=== PATIENT | male | born 1935 | race Caucasian/White ===

== ENCOUNTER 2018-06-02 10:04 | Inpatient (IN) | payer MEDICARE, BC ==
[2018-06-02 10:19] LABS: #Eosinphils 0.4 thou/uL (0.0-0.7); #Lymphocytes 1.4 thou/uL (1.20-3.40); #Monocytes 0.5 thou/uL (0.11-0.59); #Neutrophils 3.7 thou/uL (1.40-6.50); %Basophils 0.4 % (0.0-1.0); %Monocytes 8.8 % (0.0-10.0); %Neutrophils 61.8 % (42.0-75.0); Hemoglobin 14.1 g/dL (14.0-18.0); Mean Corpuscular HGB CONC 33.4 g/dL (32.0-36.0); Mean Corpuscular Hemoglobin 33.4 pg (27.0-31.0); Mean Corpuscular Volume 99.9 fL (78.0-98.0); Platelet Count 184 thou/uL (130-400); RBC Distribution Width 12.1 % (11.5-14.5); Red Blood Cell (RBC) Count 4.22 mill/uL (4.70-6.10); White Blood Cell (WBC) Count 5.9 thou/uL (4.8-10.8)
[2018-06-02 10:28] LABS: PTT 26.5 SEC (22.9-36.1); Prothrombin Time 13.2 SEC (12.0-14.7)
[2018-06-02 10:34] LABS: ALT (SGPT) 18 U/L (8-55); AST (SGOT) 24 U/L (5-34); Albumin 3.8 g/dL (3.4-4.8); Alkaline Phosphatase 87 U/L (40-150); Anion Gap 13 mmol/L (10-20); BUN (Urea Nitrogen) 18 mg/dL (8.4-25.7); CK (CPK) 146 U/L (30-200); Calc. Creatinine Clearance 0 mL/min (70-130); Calcium 9.3 mg/dL (7.8-10.44); Carbon Dioxide 26 mmol/L (23-31); Chloride 105 mmol/L (98-107); Estimated GFR-MDRD 67; Globulin 2.7 g/dL (2.4-3.5); Glucose 146 mg/dL (83-110); Lipase 42 U/L (8-78); Potassium 4.6 mmol/L (3.5-5.1); Protein, Total 6.5 g/dL (5.8-8.1); Sodium 139 mmol/L (136-145)
--- NOTE | 2018-06-02 10:47 | CT ---
CT OF HEAD NONCONTRAST: Indication: Stroke, left facial droop. FINDINGS: There is a focus of acute hemorrhage within the posterior aspect of the right torres radiata extendin g into the region of the right thalamus and internal capsule. There is interventricular extension of hemorrhage and subarachnoid extension into the interpeduncular and ambient cisterns. There is parench ymal loss. Mild enlargement of ventricular system is noted. IMPRESSION: Acute parenchymal hemorrhage centered about the right posterior torres radiata which may relate to a hypertensive hemorrhage. There is subarachnoid and interventricular extension of hemorrhage. The find ing may relate to a hypertensive etiology. Underlying lesion cannot be excluded. Continued follow up upon resolution of acute hemorrhage recommended with pre and post contrast brain MRI, in the absence of contraindications. Telephone call of findings placed to ER physician, Hank Garcia, at 10:10 a.m. on 06-02-18. Code AVINASH POS: KERI
[2018-06-02] MEDS ORDERED: niCARdipine 20MG In NaCl 20 MG/200 ML BAG ONE (10:54)
--- NOTE | 2018-06-02 11:53 | RAD ---
RADIOGRAPH CHEST 1 VIEW: Date: 06/02/2018 Time: 10:58 a.m. HISTORY: An 83-year-old male with altered mental status. COMPARISON: 06/24/2008 FINDINGS: The previously demonstrated right subclavian central line and right-sided chest tube are no longer pr esent. Otherwise, there has been no other major interval change. Sternotomy wires are again noted. Cardiomegaly. No christa pulmonary edema. No gross consolidation. No pneumothorax. Elevated right hemidiaphragm. IMPRESSION: 1. No acute pulmonary findings. 2. Status post open heart surgery. 3. Cardiomegaly without overt congestive heart failure. DAVIDA [] POS: DINORAH
[2018-06-02] MEDS ORDERED: Bisacodyl 10 MG SUPP PR PRN (12:00)
[2018-06-02] MEDS ORDERED: Ondansetron PF 4 MG/2 ML Vial IVP PRN (12:00)
[2018-06-02] MEDS ORDERED: diphenhydrAMINE 50 MG/ML VIAL IVP PRN (12:00)
--- NOTE | 2018-06-02 12:23 | CT ---
CT ANGIOGRAM NECK: CT ANGIOGRAM HEAD: 06/02/2018 HISTORY: Stroke. Left-sided facial droop. Intracranial hemorrhage on recent head CT. COMPARISON: None. TECHNIQUE: Axial CT imaging at 1.25 mm intervals, from the lung apices through the vertex, with IV contrast, usi ng a CT angiogram protocol. Coronal and sagittal 3D reformatted imaging obtained. FINDINGS: NECK: The imaged lung apices demonstrate no acute findings. Lung parenchyma is slightly limited on the basis of respiratory motion artifact. There is calcified and noncalcified irregular atherosclerotic plaque involving the lateral aspect of the aortic arch, to the left of midline. Midline sternotomy wires are present. The retroantral fat and the parapharyngeal fat appear clear bilaterally. The parotid glands and the submandibular glands appear grossly unremarkable bilaterally. Limited assessment of the aerodigestive tract appears unremarkable. No lymphadenopathy is seen in th e neck. The origin of the innominate artery, the left common carotid artery, and the left subclavian artery i s patent. There is plaque at the origin of the innominate artery, common carotid artery, and left gutierrez bclavian artery. The origin of the right subclavian artery and the right common carotid artery appears unremarkable. There is atherosclerotic calcification at the origin of the right vertebral artery, with probable mi ld associated stenosis. There is calcified plaque at the origin of the left vertebral artery with pr obable moderate stenosis. Bilateral vertebral arteries are patent. The right common carotid artery is tortuous proximally. There is prominent calcified plaque within the distal right common carotid artery, extending into the proximal right internal carotid artery, wi th mild associated stenosis. There is mild calcified plaque at the origin of the left internal carot id artery with no hemodynamically significant stenosis on the basis of NASCET criteria. HEAD: CT angiogram of the head demonstrates patency of the basilar artery. At the origin of the right superior cerebellar artery, there is an irregularly-shaped, slightly lobul ated, posteriorly-directed, 4 mm saccular aneurysm. The bilateral superior cerebellar arteries appea r patent. The P1 segment is patent and bilateral posterior cerebral arteries are patent. There is a patent posterior communicating artery on the right. There is atherosclerotic calcification of the cavernous carotid arteries bilaterally. The A1 segment is patent bilaterally, and the distal PIERRE branches appear unremarkable. The ICA bifurcation appears unremarkable bilaterally. The M1 segment is patent bilaterally, and the MCA bifurcation appears unremarkable bilaterally. The distal MCA branches appear grossly unremarkable. There is intraaxial hemorrhage in the region of the thalamus laterally, on the right, extending super iorly into the periventricular white matter, adjacent to the atrium of the right lateral ventricle, a s seen on the recent head CT. There is intraventricular blood within the right lateral ventricle, es pecially the atrium, posterior horn, and temporal horn. There is intraaxial hemorrhage within the an terior and posterior aspect of the mid brain bilaterally, and subarachnoid hemorrhage is noted in the suprasellar cistern/prepontine cistern. No acute osseous abnormality is noted. There is extensive multilevel degenerative change noted withi n the cervical spine, with multilevel disk space narrowing, degenerative endplate change, and anterio r osteophyte formation at C4-C5,C5-C6, and C6-C7, with associated bilateral facet and uncovertebral o steophyte formation. There is an area of vascular enhancement in the posterior fossa on the right, p osterior and lateral to the joanie, which could be venous in nature. This could be better evaluated on the four-vessel angiogram. IMPRESSION: 1. 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 There is adjacent subar achnoid blood, as well as intraventricular and intraparenchymal blood, including witihin the brainste m. 2. No hemodynamically significant stenosis involving the arterial structures of the neck. Results called to Dr. Garcia at 11:15 a.m. on 06/02/2018. CODE CR POS: DINORAH
[2018-06-02] MEDS ORDERED: Iopamidol 370 76% 100 ML VIAL ONE (12:40)
[2018-06-02] MEDS: niMODipine 30 MG CAP PO SCH ×3 (13:00→22:32)
--- NOTE | 2018-06-02 14:54 | PRG ---
DATE OF SERVICE: 06/02/2018 Mr. Iyer is an 83-year-old male who had the abrupt altered level of consciousness at home. He was brought to the ER where he had a noncontrast head CT performed which shows presence of subarachnoid hemorrhage, but also intraparenchymal involvement of the brainstem. He also has blood in the right thalamus and internal capsule on the right side. There is also intraventricular extension of hemorrhage as well. There is no evidence of ventriculomegaly or hydrocephalus. 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 The patient was admitted to the ICU. I have evaluated the patient and I have also had a lengthy conversation with his immediate family members. Mr. Iyer is currently nonresponsive to voice. He has spontaneous movements on the right side but none on the left. He presented to the hospital with a left facial droop. He is currently not intubated. He does have sonorous sounds while sleeping. He has a fixed pupil on the right, consistent with his brainstem injury. There are no signs of herniation on imaging or currently clinically. My discussion with the family included his current imaging, his diagnosis, as well as what I believe to be his prognosis which is very poor. I did discuss with them immediate concerns we have with aneurysmal subarachnoid hemorrhage. Namely, securing the aneurysm, maintaining adequate blood pressure control and vigilance with respect to development of hydrocephalus and vasospasm. I also indicated to them that based on the location of his hemorrhage that he would likely be permanently and profoundly impacted with respect to his level of independence. I believe the hemorrhage's location is such that he would have dysphagia, dysarthria and dense hemiparesis or hemiplegia. I do not believe he is a good candidate for open craniotomy. We could conceivably perform endovascular coiling of the aneurysm, but the family needs to have additional discussions first with respect to level of care, namely whether he will be DNI or DNR or some combination of the two. For now, we will continue with rigid blood pressure control. We will repeat the CT exam and place a ventriculostomy if need be and if the family wishes us to. Job ID: [id number] [facility]
[2018-06-02] MEDS: niCARdipine HCl 25 MG in Sodium Chloride 0.9% 250 ML 240 ML IVPB SCH (17:45)
[2018-06-02] MEDS: Sodium Chloride 0.9% 1,000 ML IV SCH ×2 (17:46→23:16)
--- NOTE | 2018-06-02 19:32 | CON ---
DATE OF CONSULTATION: 06/02/2018 This is a 70 minutes of the time, of that time, greater than 50% was spent with the patient and/or with the patient's family in the ICU. REASON FOR CONSULTATION: Impending respiratory failure secondary to brainstem stroke. HISTORY OF PRESENT ILLNESS: The patient is an 83-year-old male, who presented to the emergency room today with facial droop, difficulty ambulating, and weakness. He has developed progressive unresponsiveness throughout the day. He has had an aneurysmal bleed in the region of the brainstem. I spoke to Dr. Klein on the phone. He did not think that this was a survival situation. PAST MEDICAL HISTORY: 1. Hypertension. 2. Diabetes mellitus. PAST SURGICAL HISTORY: 1. Coronary artery bypass grafting surgery. 2. Prostate surgery. PSYCHIATRIC HISTORY: Unremarkable. SOCIAL HISTORY: Nonsmoker. Does not consume alcohol. Does not use illicit drugs. ALLERGIES: NONE. MEDICATIONS: Prior to admission; 1. Aspirin 81 mg daily. 2. Lipitor 20 mg 2 daily. 3. Metformin 500 mg 2 tablets b.i.d. 4. Omeprazole 20 mg once daily. 5. Januvia 1000 mg daily. 6. Hyzaar 500/12.5 one daily. 7. Levemir insulin 90 units subcutaneously at bedtime. REVIEW OF SYSTEMS: Cannot be obtained because the patient is currently obtunded. PHYSICAL EXAMINATION: VITAL SIGNS: Heart rate 76, blood pressure 125/57, respiratory rate 18, and O2 saturation 97%. GENERAL: This is an elderly male, who is obtunded. He will not respond to commands. HEENT: His right pupil is 5 mm, unreactive. Left pupil is 3 mm, unreactive. He has no oculocephalic reflex. He has a very weak gag reflex. He does withdraw to pain when stimulated all 4 extremities. He has Kussmaul respirations. NECK: No adenopathy, JVD, or bruits. LUNGS: Coarse breath sounds. CARDIAC: S1 and S2. Regular without murmur. ABDOMEN: Soft. No hepatosplenomegaly. EXTREMITIES: No clubbing, cyanosis, or edema. LABORATORY DATA: White blood cell count 5.9, hematocrit 42.2, and platelet count 184. INR 1.0 and PTT 26.5. Sodium 139, potassium 4.6, chloride 105, CO2 of 26, BUN 18, creatinine 1.1, and glucose 146. BNP 141. DIAGNOSTIC DATA: Head CT was reviewed, shows blood in the region of third and fourth ventricle. ASSESSMENT: 1. Brainstem aneurysmal bleed. 2. Obtunded neurologic status. PLAN: I told the family that the situation is likely to progress in a situation to where the patient probably have loss of respirations sometime in the next 24 to 48 hours. That would require intubation in heroic circumstances, but it sounds like the patient did not want life-sustaining treatment in the event of terminal illness. Through my conversations with Dr. Klein, it sounds like this is a terminal situation. I would recommend that make the patient DNR. The family is discussing this amongst themselves. I reviewed the orders. Agree with current care including nicardipine for hypertension and SCDs for DVT prophylaxis and famotidine for GI prophylaxis. Job ID: [id number]
--- NOTE | 2018-06-02 19:48 | CT ---
CT BRAIN: 06/02/2018 PROVIDED CLINICAL HISTORY: Follow up intracranial hemorrhage. COMPARISON: Exam performed earlier, same date. FINDINGS: Parenchymal hemorrhage in the right cerebral white matter with intraventricular extension is redemons trated. The size of the parenchymal hematoma appears similar to slightly enlarged with respect to th e prior study. There is more intraventricular blood than was present on the prior examination. Exte nsion into the right cerebral peduncle and mid brain/joanie is suspected on the current study. The france tricular system is stable in size. There is no evidence for midline shift. Scattered left and right cerebral subarachnoid blood is also seen. This appears somewhat increased with respect to the prior examination. The extracranial soft tissues and osseous structures demonstrate no significant interval change with respect to the prior examination. IMPRESSION: Redemonstration of parenchymal hemorrhage with interval increase in the degree of parenchymal, intrav entricular, and subarachnoid blood. POS: DINORAH
[2018-06-02] MEDS ORDERED: Propofol 1,000 MG/100 ML VIAL IV ONE (22:19)
[2018-06-02 23:05] LABS: Base Excess (BEa) -3.3 mEq/L (-2.0 to +3.0); CO2 Tension 30.9 mmHg (35.0-45.0); Calcium, Ionized 1.15 mmol/L (1.12-1.30); Carboxyhemoglobin (COHb) 1.3 gm% (0.0-3.0); Hemoglobin (Hb) 13.5 g/dL (14.0-18.0); O2 Tension (PaO2) 89.2 mmHg (> 60.0); Potassium - ABG Lab 3.86 mmol/L (3.70-5.30); pH, Arterial 7.43 (7.35-7.45)
[2018-06-02] MEDS: Famotidine/PF 20 mg/2ml Vial SLOW IVP SCH (23:14)
[2018-06-02 23:26] LABS: Puncture Site LRA
[2018-06-02 23:27] LABS: ALV-art Gradient 157.375 (0-20)
[2018-06-02] MEDS ORDERED: Propofol 1,000 MG/100 ML VIAL IV PRN (23:45)
[2018-06-02] MEDS ORDERED: Lorazepam 2 MG/ML VIAL SLOW IVP PRN (23:45)
[2018-06-02] MEDS ORDERED: DISCONTINUE PREVIOUS NARCOTIC PAIN MEDICATIONS AND BENZODIAZEPINES FS SCH (23:45)
[2018-06-02] MEDS ORDERED: Fentanyl BOLUS 250 ML IVPB PRN (23:45)
[2018-06-02] MEDS ORDERED: Morphine 2 MG/ML SYRINGE SLOW IVP PRN (23:45)
[2018-06-02] MEDS ORDERED: fentaNYL Citrate/PF 2,000 MCG in Sodium Chloride 0.9% 60 ML IV SCH (23:45)
[2018-06-02] MEDS ORDERED: Propofol BOLUS 1,000 MG/100 ML VIAL IV PRN (23:45)
--- NOTE | 2018-06-03 00:08 | PRG ---
DATE OF SERVICE: 06/02/2018 This is 2 hours of critical care time. I was called to see the patient because he is having difficulty maintaining his airway secondary to progressive stroke symptoms. I tried over the phone to talk to family out of intubation, because the patient apparently expressed to the at a much earlier date that he did not want to be kept alive or put on life support in such circumstances. That discussion did not go well. The family seemed a little bit divided over this and truthfully i may have pressed them a little too hard on the issue. Decision was made to go ahead and intubate him as the family needed some time to better grasp the situation and probably to grief. I came in and attempted to intubate the patient with a 7.5 endotracheal tube. I first tried orally via a GlideScope and had difficulty, and then tried with bronchoscopy and also had a great deal of difficulty. I went back to the GlideScope and was able to get a 7.5 endotracheal tube through. However, the tube had a leak and had to be exchanged with another 7.5 endotracheal tube. He did not desaturate during any part of that procedure. He was placed on mechanical ventilation and had an appropriate blood gas afterwards. Afterwards, I sat down with the patient's , her granddaughter, and her son. I was apologetic about earlier conversations. The family was very gracious to me. I think they do have a good understanding that the prognosis in this situation is bad. They asked me what the next steps were. I told them that this situation could evolve in the brain or could remain static. In any event, I would not expect much in the way of neurologic recovery. I told them that provided he did not progress to brain , then they would have to come to me and tell me when they felt withdraw care was appropriate. The patient's did request to make him DNR from this point forward, so an order in that regard will be put in the chart. Job ID: [id number] MTDD
[2018-06-03] MEDS: niMODipine 30 MG CAP PO SCH ×6 (01:05→21:23)
[2018-06-03] MEDS: Acetaminophen 650 MG/20.3 ML UDCUP PER TUBE PRN ×2 (01:06→16:05)
[2018-06-03] MEDS: Sodium Chloride 0.9% 1,000 ML IV SCH ×2 (05:21→17:17)
[2018-06-03 05:36] LABS: Anion Gap 12 mmol/L (10-20); BUN (Urea Nitrogen) 18 mg/dL (8.4-25.7); Calc. Creatinine Clearance 66 mL/min (70-130); Calcium 8.4 mg/dL (7.8-10.44); Carbon Dioxide 23 mmol/L (23-31); Chloride 108 mmol/L (98-107); Estimated GFR-MDRD 75; Glucose 167 mg/dL (83-110); Potassium 3.8 mmol/L (3.5-5.1); Sodium 139 mmol/L (136-145)
[2018-06-03 06:14] LABS: #Lymphocytes 1.2 thou/uL (1.20-3.40); #Neutrophils 6.4 thou/uL (1.40-6.50); %Basophils 0.2 % (0.0-1.0); %Eosinophils 0.3 % (0.0-10.0); %Lymphocytes 14.2 % (21.0-51.0); %Monocytes 11.1 % (0.0-10.0); %Neutrophils 74.2 % (42.0-75.0); Hemoglobin 12.3 g/dL (14.0-18.0); Mean Corpuscular HGB CONC 33.7 g/dL (32.0-36.0); Mean Corpuscular Volume 97.8 fL (78.0-98.0); Mean Platelet Volume 7.3 fL (7.4-10.4); Platelet Count 184 thou/uL (130-400); RBC Distribution Width 12.2 % (11.5-14.5); Red Blood Cell (RBC) Count 3.73 mill/uL (4.70-6.10); White Blood Cell (WBC) Count 8.7 thou/uL (4.8-10.8)
[2018-06-03 07:51] LABS: Actual Bicarbonate (HCO3a) 20.5 mEq/L (22-28); Base Excess (BEa) 0.2 mEq/L (-2.0 to +3.0); Calcium, Ionized 1.15 mmol/L (1.12-1.30); Carboxyhemoglobin (COHb) 1.1 gm% (0.0-3.0); Hemoglobin (Hb) 13.1 g/dL (14.0-18.0); Potassium - ABG Lab 3.78 mmol/L (3.70-5.30)
[2018-06-03 07:53] LABS: CO2 Tension 22.7 mmHg (35.0-45.0); pH, Arterial 7.57 (7.35-7.45)
[2018-06-03 07:54] LABS: ALV-art Gradient 76.825 (0-20); Puncture Site LRA
--- NOTE | 2018-06-03 09:32 | PRG ---
DATE OF SERVICE: 06/03/2018 This is 35 minutes critical care time. SUBJECTIVE: The patient remains intubated on mechanical ventilation. He has not had any sedation the night. OBJECTIVE: VITAL SIGNS: His maximum temperature was 102, currently 99.5, pulse 66, blood pressure 138/62. A 24-hour intake 2284, output 1270. NEUROLOGICAL: His right pupil is 4 mm, unreactive. Left pupil 1 mm, unreactive. He does have a gag. He does have spontaneous respirations. He will withdraw to stimulation in all four extremities, but does not follow any commands. HEENT: Otherwise unremarkable. NECK: No JVD. CHEST: Clear. CARDIAC: S1, S2. Regular. ABDOMEN: Soft. EXTREMITIES: No edema. LABORATORY DATA: Sodium 139, potassium 3.8, chloride 108, CO2 of 23, BUN 18, creatinine 0.9, glucose 167. PH 7.57, pCO2 of 23, PO2 180 on SIMV, rate 14, tidal volume of 500, PEEP 5, FiO2 40%. White blood cell count 8.7, hematocrit 36.5, and platelet count 184. ASSESSMENT: 1. The patient has had a brainstem aneurysmal bleed. He has significant neurologic deficit without evidence of improvement in the last 24 hours. I cannot say that he has had any decline though. 2. He remains on mechanical ventilation for airway protection at the family request. 3. We will adjust the patient's mechanical ventilation settings for the respiratory alkalosis. 4. Continue supportive care with IV fluids. 5. Further recommendations per Neurosurgery. Job ID: [id number]
[2018-06-03] MEDS: Famotidine/PF 20 mg/2ml Vial SLOW IVP SCH ×2 (09:44→21:23)
--- NOTE | 2018-06-03 10:00 | PRG ---
DATE OF SERVICE: 06/03/2018 Mr. Iyer remains in the ICU, now intubated at family's request last evening. His neurologic exam is for the most part unchanged. Repeat CT examination performed yesterday which shows no significant change in degree of ventriculomegaly or blood present. The family is awaiting additional family members to arrive from out of town before they make additional decisions with respect to his plan of care. I have reiterated to the family and they appear to understand quite well the very grave prognosis for Mr. Iyer and that he is unlikely to recover. Job ID: [id number]
[2018-06-03 13:36] VITALS: BMI 26.5
--- NOTE | 2018-06-03 20:04 | CON ---
DATE OF CONSULTATION: PRIMARY CARE PHYSICIAN: Dr. Randolph. PRIMARY TEAM NEUROSURGERY: Dr. Klein. REASON FOR CONSULTATION: Medical management. HISTORY OF PRESENT ILLNESS: This is an 83-year-old white male, who was in previously good health, who developed a facial droop, difficulty ambulating, weakness, and decreased responsiveness throughout the day. He was brought to the emergency room, diagnosed with an aneurysmal bleed into the brain stem. The patient was admitted to the hospital by Dr. Klein. He determined that he had very poor prognosis that possibly some sort of coiling could be done for the aneurysm itself and ventriculostomy if needed should he start to develop hydrocephalus; however , he does not have that at this point. The patient was admitted yesterday and late last night, he had increasing difficulty breathing secondary due to his decreased mental status and Dr. Gurrola had a long discussion with the family and eventually, it was determined to intubate him after that, however, they made him do not attempt resuscitation. This morning, he remained stable on the vent and has unchanged neurologic exam. PAST MEDICAL HISTORY: All history taken from the chart and from his son, who is at bedside as the patient is unresponsive currently. 1. Hypertension. 2. Diabetes mellitus, type 2. PAST SURGICAL HISTORY: 1. Coronary artery bypass grafting. 2. Prostate surgery. SOCIAL HISTORY: No tobacco, alcohol, or illicit drug use. The patient lives with his . They were very active together until about 2 years ago when she had an aortic rupture when she survived, resulted in some amputations of her feet. 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 FAMILY HISTORY: Unknown due to the patient's current medical status. ALLERGIES: NO KNOWN DRUG ALLERGIES. CURRENT MEDICATIONS: 1. Aspirin 81 mg daily. 2. Lipitor 20 mg two tablets daily. 3. Metformin 500 mg two tablets twice a day. 4. Omeprazole 20 mg daily. 5. Januvia 100 mg daily. 6. Hyzaar 50/12.5 mg one tablet daily. 7. Levemir 9 units subcutaneous at bedtime. REVIEW OF SYSTEMS: Unable to obtain secondary to the patient's obtunded status. PHYSICAL EXAMINATION: VITAL SIGNS: Blood pressure 139/65, pulse is 57, respirations 20 on the vent, O2 saturation 98%, and temperature 99.5. GENERAL: This is a well-developed, well-nourished white male, who is sedated on the vent, not responding to commands or stimulation. HEENT: The patient's right pupil was 5 mm and nonreactive. Left pupil was 3 mm and nonreactive. No oculocephalic reflex. Weak gag reflex. I was not able to appreciate any withdrawal to pain. He is wrestling around very small movements of his right upper extremity and right lower extremity. ENT, the patient is intubated with an OG tube in place as well. No injuries visible. NECK: No bruising. No trauma. No masses or thyromegaly. HEART: Regular rate and rhythm. No murmurs. LUNGS: Clear to auscultation on the vent. No wheezes or crackles. ABDOMEN: Soft. No organomegaly noted. Positive bowel sounds. EXTREMITIES: No clubbing, cyanosis, or edema. NEUROLOGIC: The patient has reflexes in all extremities. He does not have the oculocephalic reflex on eye exam above. He is moving his right arm and right leg minimally, but not to command or withdrawing to pain at this time and has no movement of his left side. SKIN: No rashes or lesions noted. LABORATORY DATA: CBC grossly normal. Coagulation profile normal. Complete metabolic panel without significant abnormalities. Blood sugars are running in the 130s to 160s. His initial troponin was negative. Brain natriuretic peptide 140. CT of brain, repeat image done yesterday evening shows re-demonstration of parenchymal hemorrhage with interval increase in degree of the parenchymal, intraventricular, and subarachnoid blood. CT of [place] of [place] angio with contrast from yesterday does show a posteriorly directed irregular 4 mm ruptured saccular aneurysm within the posterior fossa to the right of the midline at the origin of the right superior cerebellar artery with adjacent subarachnoid blood. ASSESSMENT: 1. 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 2. Acute respiratory failure secondary to above, on the ventilator. 3. Hypertension, currently well-controlled. 4. Diabetes mellitus type 2 without significant elevations of blood sugars. 5. Code status. The patient is currently do not attempt resuscitation. The family is waiting for everyone to get into town before they make any further decisions at this time. Palliative Care has been consulted. Job ID: [id number] [facility]
[2018-06-04] MEDS: niMODipine 30 MG CAP PO SCH ×6 (00:28→21:31)
[2018-06-04] MEDS: Sodium Chloride 0.9% 1,000 ML IV SCH ×3 (00:28→21:31)
[2018-06-04] MEDS: niCARdipine HCl 25 MG in Sodium Chloride 0.9% 250 ML 240 ML IVPB SCH (01:46)
[2018-06-04 05:28] LABS: #Eosinphils 0.1 thou/uL (0.0-0.7); #Lymphocytes 0.9 thou/uL (1.20-3.40); #Monocytes 1.1 thou/uL (0.11-0.59); #Neutrophils 7.3 thou/uL (1.40-6.50); %Basophils 0.3 % (0.0-1.0); %Eosinophils 0.6 % (0.0-10.0); %Lymphocytes 9.6 % (21.0-51.0); %Monocytes 11.7 % (0.0-10.0); %Neutrophils 77.8 % (42.0-75.0); Hemoglobin 13.6 g/dL (14.0-18.0); Mean Corpuscular HGB CONC 33.7 g/dL (32.0-36.0); Mean Corpuscular Hemoglobin 33.7 pg (27.0-31.0); Mean Platelet Volume 7.4 fL (7.4-10.4); Platelet Count 158 thou/uL (130-400); RBC Distribution Width 12.4 % (11.5-14.5); Red Blood Cell (RBC) Count 4.04 mill/uL (4.70-6.10); White Blood Cell (WBC) Count 9.4 thou/uL (4.8-10.8)
[2018-06-04 05:42] LABS: Anion Gap 11 mmol/L (10-20); BUN (Urea Nitrogen) 16 mg/dL (8.4-25.7); Calc. Creatinine Clearance 74 mL/min (70-130); Calcium 8.7 mg/dL (7.8-10.44); Carbon Dioxide 22 mmol/L (23-31); Chloride 110 mmol/L (98-107); Estimated GFR-MDRD 86; Glucose 168 mg/dL (83-110); Potassium 3.9 mmol/L (3.5-5.1); Sodium 139 mmol/L (136-145)
[2018-06-04] MEDS: Famotidine/PF 20 mg/2ml Vial SLOW IVP SCH ×2 (09:06→21:32)
--- NOTE | 2018-06-04 09:09 | RAD ---
CHEST 1 VIEW: INDICATION: Intubation. COMPARISON: Prior study dated 06/02/2018. FINDINGS: The patient has been intervally intubated. The ET tube tip was seen 3.3 cm above the level of the ca david. Gastric catheter projects beyond the left hemidiaphragm and beyond the field of view. There i s a new left-sided pleural effusion with left basilar atelectasis. Sternotomy changes are similar-ap pearing. No definite pneumothorax is evident. The osseous structures are unchanged. IMPRESSION: 1. New left-sided pleural effusion and left basilar opacity may reflect atelectasis, pneumonia, or a spiration. Continued followup is recommended. 2. Interval intubation with gastric catheter placement. 3. Midline sternotomy changes are similar. POS: [facility]
--- NOTE | 2018-06-04 09:50 | PRG ---
DATE OF SERVICE: 06/04/2018 PULMONARY CRITICAL CARE PROGRESS NOTE 35 minutes critical time. SUBJECTIVE: The patient remains intubated on mechanical ventilation. There has been no acute changes that I can see overnight. OBJECTIVE: VITAL SIGNS: His temperature is 99.3, pulse 69, blood pressure 139/61, O2 saturation 98%. Total intake 24-hour 2529, output 925. NEUROLOGIC: His right pupil continues to be larger than his left pupil. He does have a gag. He does have spontaneous respirations. He will withdraw with his right arm, right leg, and left leg. I could not get any withdrawal with the left arm. He will not wake up or follow commands. HEENT: Otherwise unremarkable. NECK: No JVD. CHEST: Clear anteriorly. CARDIAC: S1 and S2. Regular. ABDOMEN: Soft. EXTREMITIES: No edema. DIAGNOSTIC DATA: His chest x-ray shows a small left pleural effusion. The endotracheal tube is in appropriate place. LABORATORY DATA: Sodium 139, potassium 3.9, chloride 110, CO2 of 22, BUN 16, creatinine 0.8, and glucose 168. White blood cell count 9.4, hematocrit 40, platelet count 158. Blood gas is pending. ASSESSMENT: 1. Acute respiratory failure requiring mechanical ventilation. 2. Brainstem aneurysmal bleed with unchanged neurologic status. PLAN: Awaiting on family decision regarding further aggressive care. I am continuing mechanical ventilation until they give me some sense of direction. Of note, this patient is not requiring any sedation at this time. Nutritionally, we can start tube feeds if the family wants to continue present care. Job ID: [id number]
--- NOTE | 2018-06-04 09:51 | PDOC.PN ---
- Subjective Encounter Start Date: 06/04/18 Encounter Start Time: 10:45 -: non-verbal Subjective: Patient without changes overnight. Family considering withdrawing vent, -: most likely tomorrow morning. - Objective Resuscitation Status - Order Detail: 06/02/18 23:05 Resuscitation Status Routine Resuscitation Status: DNAR: NO Resuscitation Discussed with: Dr. Gurrola discussed w pts and son MERCEDES Reviewed: Yes Vital Signs & Weight: Vital Signs (12 hours) Temp Pulse Resp BP 06/04/18 08:00 100.2 F H 17 06/04/18 06:26 72 140/63 06/04/18 06:00 13 06/04/18 04:00 99.2 F 16 06/04/18 02:30 63 137/56 L 06/04/18 02:00 15 06/04/18 00:00 99.1 F 16 06/03/18 22:35 55 L 144/60 H 06/03/18 22:00 15 Weight Admit Weight 176 lb 2.389 oz Weight 178 lb 2.136 oz Most Recent Monitor Data Heart Rate from ECG 65 NIBP 123/49 NIBP BP-Mean 73 Respiration from ECG 25 SpO2 97 I&O: 06/03/18 06/04/18 06/05/18 06:59 06:59 06:59 Intake Total 2284.7 2529 Output Total 1270 925 125 Balance 1014.7 1604 -125 Result Diagrams: 06/04/18 04:48 06/04/18 04:48 Additional Labs: Accuchecks 06/04/18 06/03/18 06/03/18 00:14 17:20 11:52 POC Glucose 147 H 148 H 163 H Phys Exam - Physical Examination HEENT: moist MMs R pupil 4mm, L pupil 2mm, neither are reactive to light. 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 * . - Discharge Day Encounter end time: 11:00
[2018-06-04] MEDS: Acetaminophen 650 MG/20.3 ML UDCUP PER TUBE PRN (12:45)
--- NOTE | 2018-06-04 22:12 | PRG ---
DATE OF SERVICE: 06/04/2018 Mr. Iyer remains in the ICU in critical condition, status post aneurysmal subarachnoid hemorrhage with extension into the brainstem as well as the medial and inferior temporal aspect on the right. His neurologic exam continues to decline slowly. He does over-breathe the vent. He does not make any purposeful movements nor does he upon the time of my exam respond to stimulation. The family, as of today, continues to await additional family members to arrive in town. I am under the impression that they are moving towards the plan of care, which will involve withdrawal of care. I will meet with them again tomorrow for an update. Job ID: [id number]
[2018-06-05] MEDS: niMODipine 30 MG CAP PO SCH ×5 (00:48→17:26)
[2018-06-05 05:09] LABS: #Lymphocytes 0.6 thou/uL (1.20-3.40); #Monocytes 1.2 thou/uL (0.11-0.59); #Neutrophils 6.5 thou/uL (1.40-6.50); %Basophils 0.2 % (0.0-1.0); %Eosinophils 0.1 % (0.0-10.0); %Lymphocytes 7.2 % (21.0-51.0); %Monocytes 13.8 % (0.0-10.0); %Neutrophils 78.7 % (42.0-75.0); Hemoglobin 13.5 g/dL (14.0-18.0); Mean Corpuscular HGB CONC 35.4 g/dL (32.0-36.0); Mean Corpuscular Hemoglobin 34.8 pg (27.0-31.0); Mean Corpuscular Volume 98.4 fL (78.0-98.0); Mean Platelet Volume 7.6 fL (7.4-10.4); Platelet Count 151 thou/uL (130-400); RBC Distribution Width 12.1 % (11.5-14.5); Red Blood Cell (RBC) Count 3.88 mill/uL (4.70-6.10); White Blood Cell (WBC) Count 8.3 thou/uL (4.8-10.8)
[2018-06-05] MEDS: Sodium Chloride 0.9% 1,000 ML IV SCH (05:32)
[2018-06-05 05:35] LABS: Anion Gap 13 mmol/L (10-20); BUN (Urea Nitrogen) 21 mg/dL (8.4-25.7); Calc. Creatinine Clearance 72 mL/min (70-130); Calcium 8.6 mg/dL (7.8-10.44); Carbon Dioxide 18 mmol/L (23-31); Chloride 111 mmol/L (98-107); Estimated GFR-MDRD 84; Glucose 219 mg/dL (83-110); Potassium 3.8 mmol/L (3.5-5.1); Sodium 138 mmol/L (136-145)
[2018-06-05] MEDS ORDERED: Lorazepam 2 MG/ML VIAL SLOW IVP PRN (08:23)
[2018-06-05] MEDS: Famotidine/PF 20 mg/2ml Vial SLOW IVP SCH (09:24)
--- NOTE | 2018-06-05 10:09 | PRG ---
DATE OF SERVICE: 06/05/2018 Thirty five minutes critical time. SUBJECTIVE: The patient remains intubated on mechanical ventilation. There have been no acute changes overnight. OBJECTIVE: VITAL SIGNS: Temperature is 100.8, pulse 72, blood pressure 126/54. A 24-hour intake 2864, output 998. NEUROLOGIC: His right pupil is 4 mm, left pupil 3 mm, both nonreactive. No oculocephalic reflex. He does have a weak gag. He does have spontaneous respirations. He will withdraw in all 4 extremities. He does not follow any commands. HEENT: Otherwise unremarkable. NECK: No JVD. CHEST: Clear. CARDIAC: S1 and S2, regular. ABDOMEN: Soft. EXTREMITIES: No edema. LABORATORY DATA: Sodium 138, potassium 3.8, chloride 111, CO2 of 18, BUN 21, creatinine 0.8, glucose 219. White blood cell count 8.3, hematocrit 38.2, and platelet count 151. ASSESSMENT: 1. Brainstem aneurysmal bleed. 2. Locked in neurologic state without any evidence of improvement. 3. Acute respiratory failure, requiring mechanical ventilation - mainly airway protection issue. PLAN: It is anticipated the family will withdraw care later today. I have written orders on the chart for morphine and Ativan should they do such. I do not see any real reason to address the fever if the family is intent on extubating. Job ID: [id number]
--- NOTE | 2018-06-05 11:13 | PRG ---
DATE OF SERVICE: 06/05/2018 Mr. Iyer remains in the ICU intubated and gravely ill. He sustained an aneurysmal subarachnoid hemorrhage with an extension into the brainstem. We have not anticipated that he will have a survivable injury and certainly with little to no chance to return to function. The family is planning to extubate later this afternoon and move towards comfort care only. Job ID: [id number]
[2018-06-05 11:57] VITALS: BP 131/54
[2018-06-05] MEDS: Morphine 4 MG/ML VIAL SLOW IVP PRN ×6 (17:28→23:44)
[2018-06-05] MEDS ORDERED: Scopolamine 1.5 mg/72 hour Patch TD SCH (19:23)
[2018-06-05 19:36] VITALS: TEMP 100.9
--- NOTE | 2018-06-05 20:48 | PRG ---
DATE OF SERVICE: 06/05/2018 TIME OF SERVICE: 6:30 p.m. INTERVAL HISTORY: Mr. Iyer's family proceeded with terminal extubation around 5:00 p.m. today. He has continued to breathe spontaneously following extubation , and remains hemodynamically stable at this time. He does have significant transmitted upper airway sounds. I saw and examined the patient, met with the patient's family as well to help explain the current process. They are at peace with decisions made and care that he is receiving. The patient himself is nonresponsive. OBJECTIVE: VITAL SIGNS: Blood pressure 121/51 with a heart rate of 74, he is presently saturating 94% on room air. GENERAL: This is a nonresponsive gentleman, breathing about 20 times per minute on my count, with significant upper airway transmitted sounds present. Eyes: pupils reactive O/P: MM dry LUNGS: Lung walters in the lower sections are fairly clear, with coarse transmitted upper airway noise overlying. HEART: Regular rate and rhythm. ABDOMEN: Soft, nontender. EXTREMITIES: Have trace edema present bilaterally. NEUROLOGIC: He is nonresponsive to stimuli. LABORATORY DATA: Labs and hospital course reviewed. IMPRESSION: 1. 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 2. Acute respiratory failure with hypoxemia. 3. History of type 2 diabetes. 4. History of essential hypertension. PLAN/RECOMMENDATIONS: Added scopolamine per family request. Discontinued nonessential orders, providing orders only for comfort, to include judicious use of morphine as well as Ativan, though ativan seems unlikely to be necessary given his current condition, does not appear agitated. I have entered transfer orders for a medical bed, hopefully with a larger room able to accommodate his large and supportive family. I spoke with the family as well, should his condition require more prolonged care, consideration can be made for transition to inpatient hospice. They expressed agreement and understanding with the plan as above. Job ID: [id number] [facility]
[2018-06-05] MEDS: Lorazepam 2 MG/ML VIAL SLOW IVP PRN (22:47)
[2018-06-06] MEDS: Morphine 4 MG/ML VIAL SLOW IVP PRN ×5 (00:44→09:13)
[2018-06-06] MEDS: Lorazepam 2 MG/ML VIAL SLOW IVP PRN (01:29)
--- NOTE | 2018-06-06 08:45 | PRG ---
DATE OF SERVICE: 06/06/2018 NEUROSURGERY PROGRESS NOTE It took sometime this morning to visit with Jaylon's family and I spoke for about 15 minutes regarding the etiology of aneurysmal hemorrhage, the occasional parenchymal hemorrhages from aneurysm ventricular extension, and the general prognosis in younger and older patients. They were appreciative for the information. They were continuing comfort measures and we will make sure that the patient is comfortable and the family is happy with care. The nurses can pronounce . Job ID: [id number]
--- NOTE | 2018-06-06 23:00 | EKG ---
Test Reason : CVA Blood Pressure : / mmHG Vent. Rate : 060 BPM Atrial Rate : 060 BPM P-R Int : 174 ms QRS Dur : 078 ms QT Int : 430 ms P-R-T Axes : 070 059 051 degrees QTc Int : 430 ms Poor data quality, interpretation may be adversely affected Normal sinus rhythm Normal ECG Confirmed by ZENA NATHAN, PETE ([id number]), subeditor AG CARO ([id number]) on 06/06/2018 10:59:14 PM Referred By: ZENA Confirmed By:PETE FREITAS MD
--- NOTE | 2018-06-07 00:47 | DIS ---
SUMMARY: DATE OF ADMISSION: 06/02/2018 DATE OF : 06/06/2018. TIME OF : 0925 hours. CAUSE OF : 1. 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 2. Acute respiratory failure, secondary to above. SECONDARY DIAGNOSES: 1. Hypertension. 2. Diabetes mellitus type 2. HISTORY OF PRESENT ILLNESS: Mr. Iyer is an 83-year-old male who developed spontaneously a facial droop, difficulty ambulating, weakness, and decreased responsiveness throughout the day of admission. He was brought to the emergency room, underwent head CT and was diagnosed with an aneurysmal bleed into the brainstem. The patient was having increasing difficulty with breathing secondary to mental status, and with discussion with the physicians, he was intubated. HOSPITAL COURSE: After admission, secondary to decreasing responsiveness and difficulty breathing and through discussion with hospital physicians, the patient was intubated. He remained stable on the vent. In discussion with the family by hospital medical staff that overall the patient had poor prognosis. The decision was ultimately made to proceed with terminal extubation, which occurred at 1700 hours the day prior to passing. He continued to breathe spontaneously, and remained hemodynamically stable. The medical staff had met with the family throughout the process to discuss the condition, the care received, as well as comfort measures with an anticipated in-hospital . Comfort measures continued until the time of , which was today at 0925 hours. TAVERAS FINDINGS AND TEST RESULTS: Chest x-ray on 06/04/2018 showed he has had a left pleural effusion and left basilar opacity, which may be atelectasis, pneumonia, or aspiration, interval intubation with gastric catheter, and midline sternotomy changes. Brain CT on 06/02/2018 showed re-demonstration of parenchymal hemorrhage with interval increase in the degree of parenchymal intraventricular and subarachnoid blood. CT douglas of [place] angiogram on 06/02/2018 showed a posteriorly directed irregular 4 cm ruptured saccular aneurysm within the posterior fossa to the right of midline at the origin of the right superior cerebellar artery. There is adjacent subarachnoid blood as well as intraventricular and intraparenchymal blood including within the brainstem. Chest x-ray on 06/02/2018, no acute pulmonary findings, cardiomegaly without overt heart failure, status post open heart surgery. Brain CT on 06/02/2018, acute parenchymal hemorrhage centered about the right posterior torres radiata, which may relate to a hypertensive hemorrhage. Subarachnoid and intraventricular extension of hemorrhage. Underlying lesion cannot be excluded. Other lab results; CBC on 06/05/2018, WBC 8.3, hemoglobin 13.5, hematocrit 38.2 , and platelets 151. INR 1.0. Renal panel on 06/05/2018; sodium 138, potassium 3.8, chloride 111, bicarbonate 18, BUN 21, creatinine 0.87, and glucose 219. Job ID: [id number] [facility]
== END 2018-06-06 09:25 | disposition expired | DRG 64 ==
LOC: ERS 10:04 → CCU 11:14 → SURG B 06-05 21:32
PROVIDERS: ADMIT Neurological Surgery; ATTEND Neurological Surgery
PROC: 5A1945Z Respiratory Ventilation, 24-96 Consecutive Hours (ICD-10-PCS; principal; 2018-06-02)
PROC: 0BH17EZ Insertion of Endotracheal Airway into Trachea, Via Natural or Artificial Opening (ICD-10-PCS; 2018-06-02)
DX: I60.6 Nontraumatic subarachnoid hemorrhage from other intracranial arteries (principal); J96.01 Acute respiratory failure with hypoxia; E87.3 Alkalosis; J90 Pleural effusion, not elsewhere classified; R29.733 NIHSS score 33; R40.2432 Glasgow coma scale score 3-8, at arrival to emergency department; I10 Essential (primary) hypertension; Z66 Do not resuscitate; Z51.5 Encounter for palliative care; E11.9 Type 2 diabetes mellitus without complications; Z95.1 Presence of aortocoronary bypass graft; Z79.84 Long term (current) use of oral hypoglycemic drugs; Z79.82 Long term (current) use of aspirin
CPT/HCPCS: 36415; 36416; 51702; 70450; 70496; 70498; 71045; 80048; 80053; 82550; 82805; 83690; 83880; 84484; 85025; 85610; 85730; 93005; 94002; 94003; 96365; J2060; J2270; J2704; J7050; S0028